=== PATIENT | female | born 1945 | race Caucasian/White ===

== ENCOUNTER 2016-08-31 10:55 | Inpatient (IN) | payer OTHER ==
[~2016-08-31] VITALS: Ht 157.5 cm; Wt 32.5 kg
[~2016-08-31 10:55] MED LIST: CYANOCOBALAM1000 MCG PO; ENDOCET 5-3251 EACH PO; FLEXERIL10 MG PO; Flagyl PO; Folvite PO; HYDROCODON-ACE1 EAC7 PO; Habitrol,Nicoderm CQ TD; IBUPROFEN600 MG PO; Lovenox SC; Marinol PO; Milk Of Magnesia,MOM PO; PAROXETINE HCL; Senokot S,Pericolace PO; TYLENOL REGULA325 MG PO; TYLENOL WITH C1 EACH PO; Theragran PO; Thiamine,Vitamin B1 PO; VENTOLIN HFA18 GM IH; oxyCODONE PO
[2016-08-31 12:11] LABS: HEMATOCRIT 58.1 % (36.0-46.0); MCH 32.5 PG (29.0-34.0); MCHC 35.5 G/DL (30.0-36.0); MCV 91.8 FL (83-99); MEAN PLAT.VOLUME 10.9 uM^3 (9.5-12.4); PLATELET COUNT 264 K/uL (156-360); RBC DIS.WIDTH-CV 12.4 % (11.8-14.6); RBC DIS.WIDTH-SD 41.4 % (39-53); RED BLOOD COUNT 6.33 M/uL (3.80-5.20); WHITE BLOOD COUNT 9.7 K/uL (4.1-10.2)
[2016-08-31 12:21] LABS: CHLORIDE 93 mEq/L (99-109); POTASSIUM 3.5 mEq/L (3.7-5.4); SODIUM 135 mEq/L (136-147)
[2016-08-31 12:22] LABS: GLUCOSE 121 mg/dL (70-99)
[2016-08-31 12:24] LABS: ANION GAP 14 MEQ/L (2-14)
[2016-08-31 12:26] LABS: GFR ESTIMATE (CALCULATED) > 59 mL/min/
[2016-08-31 12:27] LABS: UREA NITROGEN (BUN) 24 mg/dL (9-23)
[2016-08-31 12:41] LABS: TOTAL BILIRUBIN 1.2 mg/dL (0.0-1.0)
[2016-08-31 12:42] LABS: ALKALINE PHOSPHATASE 74 IU/L (3-129)
[2016-08-31 12:45] LABS: DIRECT BILIRUBIN 0.3 mg/dL (0.0-0.3)
[2016-08-31 14:43] LABS: TROP-I INTERPRETATION NEGATIVE; TROPONIN-I 0.04 ng/mL (0.0-0.30)
[2016-08-31] MEDS ORDERED: LO-DOSE ASPIRIN81 M1 PO (16:56)
[2016-08-31] MEDS ORDERED: CALCIUM 600 +1 EAC4 PO (16:56)
[2016-08-31] MEDS ORDERED: VENLAFAXINE HC150 MG PO (16:56)
[2016-08-31] MEDS ORDERED: ELAVIL10 MG PO (16:56)
[2016-08-31 20:54] VITALS: BP 86/55
[2016-09-01] VITALS: BP 101/60
[2016-09-01 04:00] VITALS: BP 95/74
[2016-09-01 07:27] LABS: ANION GAP 7 MEQ/L (2-14); CHLORIDE 104 MEQ/L (99-109); GFR ESTIMATE (CALCULATED) > 59 mL/min/; POTASSIUM 3.5 MEQ/L (3.7-5.4); SAMPLE HEMOLYSIS CHECK 1; SAMPLE ICTERIC CHECK 0; SAMPLE LIPEMIA CHECK 0; SODIUM 137 MEQ/L (136-147); UREA NITROGEN (BUN) 14 mg/dL (9-23)
[2016-09-01 07:28] LABS: GLUCOSE 67 mg/dL (70-99)
[2016-09-01 07:33] VITALS: BP 110/63
[2016-09-01 07:56] LABS: HEMATOCRIT 45.7 % (36.0-46.0); MCH 32.6 PG (29.0-34.0); MCHC 33.5 G/DL (30.0-36.0); RBC DIS.WIDTH-CV 12.6 % (11.8-14.6); RBC DIS.WIDTH-SD 44.8 % (39-53)
[2016-09-01 08:04] LABS: MCV 97.2 FL (83-99); WHITE BLOOD COUNT 6.2 K/uL (4.1-10.2)
[2016-09-01 09:11] LABS: MEAN PLAT.VOLUME 11.9 uM^3 (9.5-12.4)
[2016-09-01 10:28] LABS: PLATELET COUNT 176 K/uL (156-360)
[2016-09-01 12:17] VITALS: BP 102/64
[2016-09-01 12:21] LABS: ADD MIUA? NO; BILIRUBIN NEGATIVE; BLOOD NEGATIVE; COLOR YELLOW ((YELLOW)); GLUCOSE (STRIP) NEGATIVE; KETONES NEGATIVE; LEUKOCYTES NEGATIVE; NITRITE NEGATIVE; PROTEIN (STRIP) NEGATIVE; SPECIFIC GRAVITY 1.026 (1.000-1.030); UROBILINOGEN 0.2 MG/DL (0.2-1.0)
[2016-09-01 12:23] LABS: UCUL ADDED? NO
[2016-09-01 15:37] VITALS: BP 114/67
[2016-09-01 20:00] VITALS: BP 105/58
[2016-09-02] VITALS: BP 111/57
[2016-09-02 04:00] VITALS: BP 115/60
[2016-09-02 08:13] VITALS: BP 111/60
[2016-09-02 08:38] LABS: HEMATOCRIT 50.5 % (36.0-46.0); MCH 33.1 PG (29.0-34.0); MCHC 34.3 G/DL (30.0-36.0); MCV 96.7 FL (83-99); MEAN PLAT.VOLUME 11.1 uM^3 (9.5-12.4); PLATELET COUNT 167 K/uL (156-360); RBC DIS.WIDTH-CV 12.5 % (11.8-14.6); RBC DIS.WIDTH-SD 43.8 % (39-53); RED BLOOD COUNT 5.22 M/uL (3.80-5.20); WHITE BLOOD COUNT 6.9 K/uL (4.1-10.2)
[2016-09-02 09:00] LABS: ANION GAP 6 MEQ/L (2-14); CHLORIDE 96 MEQ/L (99-109); GFR ESTIMATE (CALCULATED) > 59 mL/min/; POTASSIUM 3.1 MEQ/L (3.7-5.4); SAMPLE HEMOLYSIS CHECK 0; SAMPLE ICTERIC CHECK 0; SAMPLE LIPEMIA CHECK 0; SODIUM 138 MEQ/L (136-147); UREA NITROGEN (BUN) 6 mg/dL (9-23)
[2016-09-02 09:07] LABS: GLUCOSE 90 mg/dL (70-99)
[2016-09-02 12:10] VITALS: BP 102/61
[2016-09-02 16:00] VITALS: BP 108/60
[2016-09-02 19:41] VITALS: BP 109/64
[2016-09-03 01:29] LABS: HEMATOCRIT 49.7 % (36.0-46.0); MCV 94.1 FL (83-99); MEAN PLAT.VOLUME 11.1 uM^3 (9.5-12.4); PLATELET COUNT 187 K/uL (156-360); RBC DIS.WIDTH-CV 12.1 % (11.8-14.6); RBC DIS.WIDTH-SD 41.1 % (39-53); RED BLOOD COUNT 5.28 M/uL (3.80-5.20); WHITE BLOOD COUNT 6.7 K/uL (4.1-10.2)
[2016-09-03 01:42] LABS: CHLORIDE 97 mEq/L (99-109); INTER. NORMALIZED RATIO 1.1; POTASSIUM 2.8 mEq/L (3.7-5.4); PROTHROMBIN TIME 10.9 (9.2-11.2); PTT 54.1 (25-32); SODIUM 138 mEq/L (136-147)
[2016-09-03 01:44] LABS: GLUCOSE 82 mg/dL (70-99)
[2016-09-03 01:45] LABS: ANION GAP 8 MEQ/L (2-14)
[2016-09-03 01:47] LABS: ALKALINE PHOSPHATASE 65 IU/L (3-129)
[2016-09-03 01:48] LABS: GFR ESTIMATE (CALCULATED) > 59 mL/min/
[2016-09-03 01:49] LABS: UREA NITROGEN (BUN) 5 mg/dL (9-23)
[2016-09-03 01:53] LABS: TOTAL BILIRUBIN 0.4 mg/dL (0.0-1.0)
[2016-09-03 04:01] VITALS: BP 115/85
[2016-09-03 04:04] VITALS: BP 115/66
[2016-09-03 07:36] VITALS: BP 107/67
[2016-09-03 11:21] VITALS: BP 98/63
[2016-09-03 15:17] VITALS: BP 119/68
[2016-09-03 20:05] VITALS: BP 128/80
[2016-09-04] VITALS: BP 123/61
[2016-09-04 04:03] VITALS: BP 120/69
[2016-09-04 08:01] VITALS: BP 104/65
[2016-09-04 08:18] LABS: ANION GAP 6 MEQ/L (2-14); CHLORIDE 96 MEQ/L (99-109); MAGNESIUM 1.2 mg/dl (1.3-2.7); SAMPLE HEMOLYSIS CHECK 0; SAMPLE ICTERIC CHECK 0; SAMPLE LIPEMIA CHECK 0; SODIUM 138 MEQ/L (136-147)
[2016-09-04 08:24] LABS: GFR ESTIMATE (CALCULATED) > 59 mL/min/; GLUCOSE 88 mg/dL (70-99); POTASSIUM 3.5 MEQ/L (3.7-5.4); UREA NITROGEN (BUN) 4 mg/dL (9-23)
[2016-09-04 08:26] LABS: EOSINOPHIL (%) 0.8 % (0-5); EOSINOPHIL COUNT 0.1 K/uL (0-0.3); HEMATOCRIT 49.5 % (36.0-46.0); IMMATURE GRANULOCYTE (%) 0.1 % (0.0-0.7); LYMPHOCYTE COUNT 1.1 K/uL (1.0-2.8); MCH 33.1 PG (29.0-34.0); MCHC 33.7 G/DL (30.0-36.0); MONOCYTE (%) 7.7 % (3-12); MONOCYTE COUNT 0.6 K/uL (0-0.8); NEUTROPHIL (%) 76.2 % (45-76); NEUTROPHIL COUNT 5.5 K/uL (1.8-6.4); RBC DIS.WIDTH-CV 12.7 % (11.8-14.6); RBC DIS.WIDTH-SD 45.7 % (39-53); RED BLOOD COUNT 5.04 M/uL (3.80-5.20); WHITE BLOOD COUNT 7.2 K/uL (4.1-10.2)
[2016-09-04 08:38] LABS: MCV 98.2 FL (83-99)
[2016-09-04 08:51] LABS: MEAN PLAT.VOLUME 11.6 uM^3 (9.5-12.4); PLATELET COUNT 153 K/uL (156-360)
[2016-09-04 12:00] VITALS: BP 95/56
[2016-09-04 14:30] VITALS: BP 80/52
[2016-09-04 20:00] VITALS: BP 92/52
[2016-09-05] VITALS: BP 122/77
[2016-09-05 04:28] VITALS: BP 101/55
[2016-09-05 07:29] LABS: HEMATOCRIT 48.4 % (36.0-46.0); MCH 32.3 PG (29.0-34.0); MCHC 32.6 G/DL (30.0-36.0); PLATELET COUNT 161 K/uL (156-360); RBC DIS.WIDTH-CV 12.9 % (11.8-14.6); RBC DIS.WIDTH-SD 46.6 % (39-53); RED BLOOD COUNT 4.89 M/uL (3.80-5.20); WHITE BLOOD COUNT 5.7 K/uL (4.1-10.2)
[2016-09-05 07:30] LABS: EOSINOPHIL (%) 1.1 % (0-5); EOSINOPHIL COUNT 0.1 K/uL (0-0.3); IMMATURE GRANULOCYTE (%) 0.2 % (0.0-0.7); LYMPHOCYTE COUNT 1.1 K/uL (1.0-2.8); MEAN PLAT.VOLUME 11.2 uM^3 (9.5-12.4); MONOCYTE (%) 8.4 % (3-12); MONOCYTE COUNT 0.5 K/uL (0-0.8); NEUTROPHIL COUNT 4.1 K/uL (1.8-6.4)
[2016-09-05 07:54] LABS: ANION GAP 2 MEQ/L (2-14); CHLORIDE 98 MEQ/L (99-109); GFR ESTIMATE (CALCULATED) > 59 mL/min/; GLUCOSE 66 mg/dL (70-99); MAGNESIUM 1.5 mg/dl (1.3-2.7); POTASSIUM 4.8 MEQ/L (3.7-5.4); SAMPLE HEMOLYSIS CHECK 0; SAMPLE ICTERIC CHECK 0; SAMPLE LIPEMIA CHECK 0; SODIUM 136 MEQ/L (136-147); UREA NITROGEN (BUN) 4 mg/dL (9-23)
[2016-09-05 08:06] VITALS: BP 126/82
[2016-09-05 11:08] VITALS: BP 108/60
[2016-09-05 15:16] VITALS: BP 96/52
[2016-09-05 19:49] VITALS: BP 107/57
[2016-09-06 00:28] VITALS: BP 142/79
[2016-09-06 03:54] VITALS: BP 110/74
[2016-09-06 07:46] VITALS: BP 110/62
[2016-09-06 12:01] VITALS: BP 107/62
[2016-09-06 16:24] VITALS: BP 109/60
[2016-09-06 19:53] VITALS: BP 99/60
[2016-09-07 00:11] VITALS: BP 126/71
[2016-09-07 03:57] VITALS: BP 138/69
[2016-09-07 08:07] VITALS: BP 107/62
[2016-09-07 12:04] VITALS: BP 96/55
[2016-09-07] MEDS ORDERED: HEPARIN SO5000 UNITS SC (13:46)
[2016-09-07] MEDS ORDERED: NICOTINE PATCH1 EAC2 TD (13:46)
[2016-09-07] MEDS ORDERED: FOLIC ACID1 MG PO (13:47)
[2016-09-07] MEDS ORDERED: THERAGRAN1 TABLET PO (13:47)
[2016-09-07] MEDS ORDERED: Thiamine,Vitamin B1 PO (13:47)
[2016-09-07] MEDS ORDERED: DUONEB 2.5-0.5 M3 ML AEROSOL (13:48)
== END 2016-09-07 16:03 | DRG 640 ==
LOC: EME 10:55 → 5SOUTH 18:37 → EDOF 18:37 → 5SOUTH 20:31
PROVIDERS: Emergency Medicine; Hospitalist; Internal Medicine; Physician Assistant
DX: E86.0 Dehydration (principal); R57.1 Hypovolemic shock; R64 Cachexia; F19.921 Other psychoactive substance use, unspecified with intoxication with delirium; S32.10XA Unspecified fracture of sacrum, initial encounter for closed fracture; J44.9 Chronic obstructive pulmonary disease, unspecified; E87.1 Hypo-osmolality and hyponatremia; Z68.1 Body mass index [BMI] 19.9 or less, adult; R62.7 Adult failure to thrive; F17.210 Nicotine dependence, cigarettes, uncomplicated; W01.10XA Fall on same level from slipping, tripping and stumbling with subsequent striking against unspecified object, initial encounter; F10.20 Alcohol dependence, uncomplicated; Y99.8 Other external cause status; E87.6 Hypokalemia; F32.9 Major depressive disorder, single episode, unspecified
CPT/HCPCS: 70450; 71020; 71250; 71260; 72125; 72128; 72131; 74176; 74177; 80048; 80053; 80076; 81003; 82607; 83735; 84100; 84443; 84484; 85025; 85027; 85610; 85730; 92610 GN; 93005; 94640; 94640 76; 94799; 97530 GO; 99202; 99281; 99285; J1644; J3411; J3475; J3480; J7030

== ENCOUNTER 2017-01-10 13:47 | Inpatient (IN) | payer OTHER ==
[~2017-01-10] VITALS: Ht 154.9 cm; Wt 37.9 kg
[~2017-01-10 13:47] MED LIST changes: +CALCIUM 600 +1 EAC4 PO; +DUONEB 2.5-0.5 M3 ML AEROSOL; +ELAVIL10 MG PO; +FOLIC ACID1 MG PO; +HEPARIN SO5000 UNITS SC; +LO-DOSE ASPIRIN81 M1 PO; +NICOTINE PATCH1 EAC2 TD; +THERAGRAN1 TABLET PO; +VENLAFAXINE HC150 MG PO
[2017-01-10 14:19] LABS: HEMATOCRIT 46.5 % (36.0-46.0); MCHC 33.3 G/DL (30.0-36.0); MCV 98.9 FL (83-99); MEAN PLAT.VOLUME 9.5 uM^3 (9.5-12.4); PLATELET COUNT 225 K/uL (156-360); RBC DIS.WIDTH-CV 13.2 % (11.8-14.6); RBC DIS.WIDTH-SD 48.2 % (39-53); WHITE BLOOD COUNT 11.2 K/uL (4.1-10.2)
[2017-01-10 14:27] LABS: CHLORIDE 94 mEq/L (99-109); POTASSIUM 3.7 mEq/L (3.7-5.4); SODIUM 134 mEq/L (136-147)
[2017-01-10 14:29] LABS: GLUCOSE 158 mg/dL (70-99)
[2017-01-10 14:30] LABS: ANION GAP 13 MEQ/L (2-14)
[2017-01-10 14:32] LABS: D-DIMER ELISA 1.03 mg/L FEU (< 0.57); PROTHROMBIN TIME 10.6 (9.2-11.2); PTT 35.5 (25-32)
[2017-01-10 14:33] LABS: GFR ESTIMATE (CALCULATED) > 59 mL/min/
[2017-01-10 14:34] LABS: UREA NITROGEN (BUN) 11 mg/dL (9-23)
[2017-01-10 14:40] LABS: TROP-I INTERPRETATION NEGATIVE; TROPONIN-I < 0.01 ng/mL (0.0-0.30)
[2017-01-10 18:09] LABS: TROP-I INTERPRETATION NEGATIVE; TROPONIN-I 0.02 ng/mL (0.0-0.30)
[2017-01-10 22:40] VITALS: BP 90/52
[2017-01-11] VITALS (15 sets, daily range): BP systolic 72–167; BP diastolic 41–99
[2017-01-11 07:37] LABS: HEMATOCRIT 44.4 % (36.0-46.0); MCHC 32.7 G/DL (30.0-36.0); MCV 104.2 FL (83-99); PLATELET COUNT 223 K/uL (156-360); RBC DIS.WIDTH-CV 13.3 % (11.8-14.6); RBC DIS.WIDTH-SD 51.1 % (39-53); RED BLOOD COUNT 4.26 M/uL (3.80-5.20); WHITE BLOOD COUNT 8.3 K/uL (4.1-10.2)
[2017-01-11 08:00] LABS: ALKALINE PHOSPHATASE 97 IU/L (3-129); ANION GAP 6 MEQ/L (2-14); CHLORIDE 97 MEQ/L (99-109); GFR ESTIMATE (CALCULATED) > 59 mL/min/; GLUCOSE 197 mg/dL (70-99); POTASSIUM 3.7 MEQ/L (3.7-5.4); SAMPLE HEMOLYSIS CHECK 0; SAMPLE ICTERIC CHECK 0; SAMPLE LIPEMIA CHECK 0; SODIUM 137 MEQ/L (136-147); TOTAL BILIRUBIN 0.3 MG/DL (0.0-1.0); UREA NITROGEN (BUN) 13 mg/dL (9-23)
[2017-01-11 08:37] LABS: BASE EXCESS -0.7 mEq/L (-3 to +3); BICARBONATE 33.4 mEq/L (22-26); METHEMOGLOBIN 1.5 % (0-1.5); PO2 112 mm Hg (80-100)
[2017-01-11 08:40] LABS: COMMENTS - BLOOD GASES +C; DEVICE NC; O2 FLOW 3 L/MIN; PCO2 118 mm Hg (35-45); SITE RB; TOTAL RESP RATE 20 resp/min
[2017-01-11 08:41] LABS: pH 7.06 (7.35-7.45)
[2017-01-11 09:28] LABS: MAGNESIUM 2.6 mg/dl (1.3-2.7)
[2017-01-11 11:51] LABS: METH RESISTANT S AUREUS PCR NEGATIVE (NEGATIVE)
[2017-01-11 11:52] LABS: PROBE CHECK PASS; SPECIMEN PROCESSING CONTROL PASS
[2017-01-11 13:17] LABS: BASE EXCESS 2.4 mEq/L (-3 to +3); BICARBONATE 28.4 mEq/L (22-26); CARBOXY HGB 2.5 % (0-5); METHEMOGLOBIN 1.6 % (0-1.5)
[2017-01-11 13:18] LABS: COMMENTS - BLOOD GASES C+; DEVICE 980 VENTILATOR; FI02 50 %; MECHANICAL RATE 22 resp/min; MODE AC; PCO2 48 mm Hg (35-45); PEEP 5 CM/H20; PO2 203 mm Hg (80-100); SITE RB; TIDAL VOLUME 375 ML; TOTAL RESP RATE 22 resp/min; pH 7.38 (7.35-7.45)
[2017-01-12] VITALS (21 sets, daily range): BP systolic 76–119; BP diastolic 38–73
[2017-01-12 06:02] LABS: BASE EXCESS 2.1 mEq/L (-3 to +3); BICARBONATE 30.3 mEq/L (22-26); CARBOXY HGB 2.4 % (0-5); COMMENTS - BLOOD GASES A+; DEVICE 980 VENT; FI02 30 %; METHEMOGLOBIN 1.5 % (0-1.5); MODE SPONT; PCO2 63 mm Hg (35-45); PO2 57 mm Hg (80-100); SITE RB; TOTAL RESP RATE 24 resp/min; pH 7.29 (7.35-7.45)
[2017-01-12 06:03] LABS: PEEP 5 CM/H20; PRES. SUPPORT 12 CM/H2O
[2017-01-12 07:54] LABS: ANION GAP 10 MEQ/L (2-14); CHLORIDE 99 MEQ/L (99-109); EOSINOPHIL (%) 0 % (0-5); GFR ESTIMATE (CALCULATED) > 59 mL/min/; GLUCOSE 230 mg/dL (70-99); HEMATOCRIT 38.6 % (36.0-46.0); IMMATURE GRANULOCYTE COUNT 0.1 K/uL; LYMPHOCYTE COUNT 0.3 K/uL (1.0-2.8); MAGNESIUM 2.6 mg/dl (1.3-2.7); MCH 33.2 PG (29.0-34.0); MCHC 32.4 G/DL (30.0-36.0); MCV 102.4 FL (83-99); MEAN PLAT.VOLUME 10.3 uM^3 (9.5-12.4); MONOCYTE (%) 6.8 % (3-12); MONOCYTE COUNT 0.7 K/uL (0-0.8); NEUTROPHIL (%) 89.4 % (45-76); PLATELET COUNT 198 K/uL (156-360); POTASSIUM 3.2 MEQ/L (3.7-5.4); RBC DIS.WIDTH-CV 13.3 % (11.8-14.6); RBC DIS.WIDTH-SD 50.7 % (39-53); RED BLOOD COUNT 3.77 M/uL (3.80-5.20); SAMPLE HEMOLYSIS CHECK 0; SAMPLE ICTERIC CHECK 0; SAMPLE LIPEMIA CHECK 0; SODIUM 136 MEQ/L (136-147); UREA NITROGEN (BUN) 12 mg/dL (9-23); WHITE BLOOD COUNT 10.1 K/uL (4.1-10.2)
[2017-01-12 08:09] LABS: BASE EXCESS 4.1 mEq/L (-3 to +3); BICARBONATE 31.3 mEq/L (22-26); CARBOXY HGB 2.3 % (0-5); DEVICE VENT; FI02 30 %; METHEMOGLOBIN 1.7 % (0-1.5); MODE SPONT; PCO2 58 mm Hg (35-45); PO2 59 mm Hg (80-100); SITE RB; TOTAL RESP RATE 7 resp/min; pH 7.34 (7.35-7.45)
[2017-01-12 08:11] LABS: PEEP 5 CM/H20; PRES. SUPPORT 12 CM/H2O
[2017-01-12 08:36] LABS: INTERNAL CONTROL VALID? YES
[2017-01-12 17:33] LABS: POINT-OF-CARE METER ID UU13113731
[2017-01-12 20:54] LABS: POTASSIUM 3.4 mEq/L (3.7-5.4); SODIUM 140 mEq/L (136-147)
[2017-01-12 20:55] LABS: CHLORIDE 104 mEq/L (99-109)
[2017-01-12 20:56] LABS: GLUCOSE 173 mg/dL (70-99)
[2017-01-12 20:58] LABS: ANION GAP 9 MEQ/L (2-14)
[2017-01-12 21:00] LABS: GFR ESTIMATE (CALCULATED) > 59 mL/min/
[2017-01-12 21:01] LABS: UREA NITROGEN (BUN) 12 mg/dL (9-23)
[2017-01-12 21:48] LABS: TROP-I INTERPRETATION NEGATIVE; TROPONIN-I 0.01 ng/mL (0.0-0.30)
[2017-01-12 22:13] LABS: CREATINE KINASE 26 IU/L (1-294)
[2017-01-13] VITALS (23 sets, daily range): BP systolic 84–138; BP diastolic 46–67
[2017-01-13 00:12] LABS: POINT-OF-CARE METER ID UU14162636
[2017-01-13 05:50] LABS: CHLORIDE 107 mEq/L (99-109); SODIUM 140 mEq/L (136-147)
[2017-01-13 05:51] LABS: MAGNESIUM 2.3 mg/dL (1.3-2.7); POTASSIUM 4.3 mEq/L (3.7-5.4)
[2017-01-13 05:52] LABS: GLUCOSE 167 mg/dL (70-99)
[2017-01-13 05:53] LABS: ANION GAP 7 MEQ/L (2-14)
[2017-01-13 05:56] LABS: GFR ESTIMATE (CALCULATED) > 59 mL/min/
[2017-01-13 05:57] LABS: UREA NITROGEN (BUN) 12 mg/dL (9-23)
[2017-01-13 06:03] LABS: HEMATOCRIT 34.2 % (36.0-46.0); MCH 33.5 PG (29.0-34.0); MCHC 32.5 G/DL (30.0-36.0); MCV 103.3 FL (83-99); MEAN PLAT.VOLUME 10.1 uM^3 (9.5-12.4); PLATELET COUNT 199 K/uL (156-360); RBC DIS.WIDTH-CV 13.9 % (11.8-14.6); RBC DIS.WIDTH-SD 53.5 % (39-53); RED BLOOD COUNT 3.31 M/uL (3.80-5.20); WHITE BLOOD COUNT 9.9 K/uL (4.1-10.2)
[2017-01-13 06:59] LABS: EOSINOPHIL (%) 0 % (0-5); IMMATURE GRANULOCYTE (%) 1.1 % (0.0-0.7); IMMATURE GRANULOCYTE COUNT 0.1 K/uL; INSTRUMENT ABS NEUTROPHIL CT 9.1 K/uL; LYMPHOCYTE COUNT 0.2 K/uL (1.0-2.8); MONOCYTE (%) 4.7 % (3-12); MONOCYTE COUNT 0.5 K/uL (0-0.8); NEUTROPHIL COUNT 9.1 K/uL (1.8-6.4)
[2017-01-13 07:31] LABS: ABS NEUTROPHIL COUNT 9.5; BAND NEUTROPHILS 6.2 % (0-8.0); BASOPHILS 0.9 %; EOSINOPHIL ABS CT 0; LYMPHOCYTES 1.7 % (15.0-45.0); SEG.NEUTROPHILS 89.4 % (46.0-76.0)
[2017-01-13 12:25] LABS: POINT-OF-CARE USER ID 612031313
[2017-01-13 18:17] LABS: POINT-OF-CARE USER ID 612031313
[2017-01-14] VITALS (24 sets, daily range): BP systolic 95–145; BP diastolic 54–83
[2017-01-14 01:26] LABS: POINT-OF-CARE METER ID UU14162636
[2017-01-14 06:25] LABS: EOSINOPHIL (%) 0 % (0-5); HEMATOCRIT 39.8 % (36.0-46.0); IMMATURE GRANULOCYTE (%) 1.2 % (0.0-0.7); IMMATURE GRANULOCYTE COUNT 0.1 K/uL; INSTRUMENT ABS NEUTROPHIL CT 7.3 K/uL; LYMPHOCYTE COUNT 0.2 K/uL (1.0-2.8); MCH 32.7 PG (29.0-34.0); MCHC 32.7 G/DL (30.0-36.0); MEAN PLAT.VOLUME 9.6 uM^3 (9.5-12.4); MONOCYTE (%) 7.2 % (3-12); MONOCYTE COUNT 0.6 K/uL (0-0.8); NEUTROPHIL (%) 88.5 % (45-76); NEUTROPHIL COUNT 7.3 K/uL (1.8-6.4); PLATELET COUNT 221 K/uL (156-360); RBC DIS.WIDTH-CV 13.7 % (11.8-14.6); RBC DIS.WIDTH-SD 50.5 % (39-53); WHITE BLOOD COUNT 8.3 K/uL (4.1-10.2)
[2017-01-14 06:26] LABS: RED BLOOD COUNT 3.98 M/uL (3.80-5.20)
[2017-01-14 06:42] LABS: POINT-OF-CARE METER ID UU13113803
[2017-01-14 06:50] LABS: ANION GAP 7 MEQ/L (2-14); CHLORIDE 96 MEQ/L (99-109); GFR ESTIMATE (CALCULATED) > 59 mL/min/; GLUCOSE 141 mg/dL (70-99); POTASSIUM 3.5 MEQ/L (3.7-5.4); SAMPLE HEMOLYSIS CHECK 0; SAMPLE ICTERIC CHECK 0; SAMPLE LIPEMIA CHECK 0; SODIUM 141 MEQ/L (136-147); UREA NITROGEN (BUN) 12 mg/dL (9-23)
[2017-01-14 12:05] LABS: POINT-OF-CARE METER ID UU14162636
[2017-01-14 16:21] LABS: BASE EXCESS 12.7 mEq/L (-3 to +3); CARBOXY HGB 2.2 % (0-5); METHEMOGLOBIN 1.7 % (0-1.5); PO2 60 mm Hg (80-100); pH 7.41 (7.35-7.45)
[2017-01-14 16:24] LABS: BICARBONATE 40.6 mEq/L (22-26); COMMENTS - BLOOD GASES C+; DEVICE VENT; FI02 30 %; MODE TC; PCO2 64 mm Hg (35-45); PEEP 5 CM/H20; SITE RB; TOTAL RESP RATE 27 resp/min
[2017-01-15] VITALS (22 sets, daily range): BP systolic 110–150; BP diastolic 60–95
[2017-01-15 02:13] LABS: POINT-OF-CARE METER ID UU13113803
[2017-01-15 06:28] LABS: EOSINOPHIL (%) 0 % (0-5); HEMATOCRIT 40.2 % (36.0-46.0); IMMATURE GRANULOCYTE (%) 1.4 % (0.0-0.7); IMMATURE GRANULOCYTE COUNT 0.1 K/uL; INSTRUMENT ABS NEUTROPHIL CT 6.5 K/uL; LYMPHOCYTE COUNT 0.3 K/uL (1.0-2.8); MCH 33.3 PG (29.0-34.0); MCHC 32.8 G/DL (30.0-36.0); MCV 101.5 FL (83-99); MEAN PLAT.VOLUME 9.7 uM^3 (9.5-12.4); MONOCYTE (%) 5.3 % (3-12); MONOCYTE COUNT 0.4 K/uL (0-0.8); NEUTROPHIL (%) 89.2 % (45-76); NEUTROPHIL COUNT 6.5 K/uL (1.8-6.4); PLATELET COUNT 239 K/uL (156-360); RBC DIS.WIDTH-CV 14.1 % (11.8-14.6); RBC DIS.WIDTH-SD 52.8 % (39-53); RED BLOOD COUNT 3.96 M/uL (3.80-5.20); WHITE BLOOD COUNT 7.3 K/uL (4.1-10.2)
[2017-01-15 07:02] LABS: ANION GAP 6 MEQ/L (2-14); CHLORIDE 95 MEQ/L (99-109); GFR ESTIMATE (CALCULATED) > 59 mL/min/; GLUCOSE 154 mg/dL (70-99); POTASSIUM 4.1 MEQ/L (3.7-5.4); SAMPLE HEMOLYSIS CHECK 0; SAMPLE ICTERIC CHECK 0; SAMPLE LIPEMIA CHECK 0; SODIUM 141 MEQ/L (136-147); UREA NITROGEN (BUN) 13 mg/dL (9-23)
[2017-01-15 07:06] LABS: POINT-OF-CARE METER ID UU13113803
[2017-01-15 13:09] LABS: POINT-OF-CARE METER ID UU13113803
[2017-01-15 17:50] LABS: POINT-OF-CARE METER ID UU14174217
[2017-01-15 21:54] LABS: POINT-OF-CARE METER ID UU14174225
[2017-01-16 04:33] VITALS: BP 134/70
[2017-01-16 07:00] VITALS: BP 152/82
[2017-01-16 08:28] LABS: EOSINOPHIL (%) 0 % (0-5); HEMATOCRIT 43.3 % (36.0-46.0); IMMATURE GRANULOCYTE (%) 1.6 % (0.0-0.7); IMMATURE GRANULOCYTE COUNT 0.1 K/uL; LYMPHOCYTE COUNT 0.4 K/uL (1.0-2.8); MCH 32.9 PG (29.0-34.0); MCHC 33.3 G/DL (30.0-36.0); MCV 98.9 FL (83-99); MEAN PLAT.VOLUME 9.6 uM^3 (9.5-12.4); MONOCYTE (%) 5.9 % (3-12); MONOCYTE COUNT 0.4 K/uL (0-0.8); NEUTROPHIL (%) 86.3 % (45-76); PLATELET COUNT 271 K/uL (156-360); RBC DIS.WIDTH-CV 13.4 % (11.8-14.6); RBC DIS.WIDTH-SD 48.6 % (39-53); RED BLOOD COUNT 4.38 M/uL (3.80-5.20); WHITE BLOOD COUNT 6.9 K/uL (4.1-10.2)
[2017-01-16 09:04] LABS: ANION GAP 6 MEQ/L (2-14); CHLORIDE 89 MEQ/L (99-109); GFR ESTIMATE (CALCULATED) > 59 mL/min/; GLUCOSE 123 mg/dL (70-99); MAGNESIUM 1.9 mg/dl (1.3-2.7); POTASSIUM 3.7 MEQ/L (3.7-5.4); SAMPLE HEMOLYSIS CHECK 0; SAMPLE ICTERIC CHECK 0; SAMPLE LIPEMIA CHECK 0; SODIUM 135 MEQ/L (136-147); UREA NITROGEN (BUN) 12 mg/dL (9-23)
[2017-01-16 12:03] LABS: C DIFF TOXIN NEGATIVE (NEGATIVE)
[2017-01-16 12:05] VITALS: BP 124/62
[2017-01-16 12:21] VITALS: BP 148/80
[2017-01-16 12:31] LABS: PROBE CHECK PASS; SPECIMEN PROCESSING CONTROL PASS
[2017-01-16 15:00] VITALS: BP 149/93
[2017-01-16 23:46] VITALS: BP 122/64
[2017-01-17 06:41] LABS: EOSINOPHIL (%) 0 % (0-5); HEMATOCRIT 42.1 % (36.0-46.0); IMMATURE GRANULOCYTE (%) 1.3 % (0.0-0.7); IMMATURE GRANULOCYTE COUNT 0.1 K/uL; INSTRUMENT ABS NEUTROPHIL CT 4.9 K/uL; LYMPHOCYTE COUNT 1.4 K/uL (1.0-2.8); MCH 33.1 PG (29.0-34.0); MCHC 32.8 G/DL (30.0-36.0); MEAN PLAT.VOLUME 9.5 uM^3 (9.5-12.4); MONOCYTE COUNT 0.6 K/uL (0-0.8); NEUTROPHIL (%) 70.9 % (45-76); NEUTROPHIL COUNT 4.9 K/uL (1.8-6.4); PLATELET COUNT 260 K/uL (156-360); RBC DIS.WIDTH-CV 13.3 % (11.8-14.6); RBC DIS.WIDTH-SD 49.4 % (39-53); RED BLOOD COUNT 4.17 M/uL (3.80-5.20); WHITE BLOOD COUNT 6.9 K/uL (4.1-10.2)
[2017-01-17 07:16] LABS: ANION GAP ND MEQ/L (2-14); CHLORIDE 91 MEQ/L (99-109); GFR ESTIMATE (CALCULATED) > 59 mL/min/; MAGNESIUM 1.9 mg/dl (1.3-2.7); POTASSIUM 3.5 MEQ/L (3.7-5.4); SAMPLE HEMOLYSIS CHECK 0; SAMPLE ICTERIC CHECK 0; SAMPLE LIPEMIA CHECK 0; SODIUM 141 MEQ/L (136-147); UREA NITROGEN (BUN) 14 mg/dL (9-23)
[2017-01-17 07:20] LABS: CARBON DIOXIDE (BICARBONATE) > 40.0 MEQ/L (20-31); GLUCOSE 66 mg/dL (70-99)
[2017-01-17 07:51] VITALS: BP 109/65
[2017-01-17 11:31] LABS: BASE EXCESS 19.4 mEq/L (-3 to +3); BICARBONATE 46.9 mEq/L (22-26); CARBOXY HGB 2.2 % (0-5); METHEMOGLOBIN 1.6 % (0-1.5); PCO2 63 mm Hg (35-45); PO2 53 mm Hg (80-100); pH 7.48 (7.35-7.45)
[2017-01-17 11:32] LABS: COMMENTS - BLOOD GASES C+; DEVICE NC; O2 FLOW 2 L/MIN; SITE RB
[2017-01-17 16:17] VITALS: BP 99/53
[2017-01-17 23:24] VITALS: BP 128/72
[2017-01-18 07:50] LABS: EOSINOPHIL (%) 0 % (0-5); HEMATOCRIT 42.4 % (36.0-46.0); IMMATURE GRANULOCYTE (%) 0.9 % (0.0-0.7); IMMATURE GRANULOCYTE COUNT 0.1 K/uL; INSTRUMENT ABS NEUTROPHIL CT 6.4 K/uL; LYMPHOCYTE COUNT 1.7 K/uL (1.0-2.8); MCHC 31.6 G/DL (30.0-36.0); MCV 101.2 FL (83-99); MEAN PLAT.VOLUME 9.4 uM^3 (9.5-12.4); MONOCYTE (%) 6.6 % (3-12); MONOCYTE COUNT 0.6 K/uL (0-0.8); NEUTROPHIL (%) 72.9 % (45-76); NEUTROPHIL COUNT 6.4 K/uL (1.8-6.4); PLATELET COUNT 285 K/uL (156-360); RBC DIS.WIDTH-CV 13.2 % (11.8-14.6); RBC DIS.WIDTH-SD 49.7 % (39-53); RED BLOOD COUNT 4.19 M/uL (3.80-5.20); WHITE BLOOD COUNT 8.7 K/uL (4.1-10.2)
[2017-01-18 08:18] LABS: ANION GAP ND MEQ/L (2-14); CHLORIDE 93 MEQ/L (99-109); GFR ESTIMATE (CALCULATED) > 59 mL/min/; GLUCOSE 61 mg/dL (70-99); MAGNESIUM 1.8 mg/dl (1.3-2.7); POTASSIUM 4.1 MEQ/L (3.7-5.4); SAMPLE HEMOLYSIS CHECK 0; SAMPLE ICTERIC CHECK 0; SAMPLE LIPEMIA CHECK 0; SODIUM 141 MEQ/L (136-147); UREA NITROGEN (BUN) 16 mg/dL (9-23)
[2017-01-18 08:18] LABS: POINT-OF-CARE METER ID UU14174225
[2017-01-18 08:19] LABS: CARBON DIOXIDE (BICARBONATE) > 40.0 MEQ/L (20-31)
[2017-01-18 08:28] VITALS: BP 123/73
[2017-01-18 11:51] LABS: BASE EXCESS 16.9 mEq/L (-3 to +3); BICARBONATE 44.5 mEq/L (22-26); CARBOXY HGB 2.4 % (0-5); METHEMOGLOBIN 1.7 % (0-1.5); PCO2 64 mm Hg (35-45); PO2 58 mm Hg (80-100); pH 7.45 (7.35-7.45)
[2017-01-18 11:52] LABS: DEVICE NC; O2 FLOW 2 L/MIN; SITE LB; TOTAL RESP RATE 10 resp/min
[2017-01-18 12:38] LABS: POINT-OF-CARE METER ID UU14174225
[2017-01-18 16:36] LABS: POINT-OF-CARE METER ID UU14174225
[2017-01-18 17:08] VITALS: BP 108/62
[2017-01-19] VITALS: BP 103/58
[2017-01-19 07:51] LABS: POINT-OF-CARE METER ID UU14174225
[2017-01-19 08:08] VITALS: BP 117/75
[2017-01-19 08:49] LABS: EOSINOPHIL (%) 0 % (0-5); HEMATOCRIT 42.9 % (36.0-46.0); IMMATURE GRANULOCYTE (%) 1.2 % (0.0-0.7); IMMATURE GRANULOCYTE COUNT 0.1 K/uL; INSTRUMENT ABS NEUTROPHIL CT 7.7 K/uL; LYMPHOCYTE COUNT 1.7 K/uL (1.0-2.8); MCH 32.2 PG (29.0-34.0); MCHC 32.2 G/DL (30.0-36.0); MCV 100.2 FL (83-99); MEAN PLAT.VOLUME 9.5 uM^3 (9.5-12.4); MONOCYTE COUNT 0.7 K/uL (0-0.8); NEUTROPHIL (%) 75.3 % (45-76); NEUTROPHIL COUNT 7.7 K/uL (1.8-6.4); PLATELET COUNT 312 K/uL (156-360); RBC DIS.WIDTH-CV 13.2 % (11.8-14.6); RBC DIS.WIDTH-SD 48.8 % (39-53); RED BLOOD COUNT 4.28 M/uL (3.80-5.20); WHITE BLOOD COUNT 10.2 K/uL (4.1-10.2)
[2017-01-19 09:11] LABS: ANION GAP ND MEQ/L (2-14); CHLORIDE 89 MEQ/L (99-109); GFR ESTIMATE (CALCULATED) > 59 mL/min/; GLUCOSE 65 mg/dL (70-99); MAGNESIUM 1.7 mg/dl (1.3-2.7); POTASSIUM 4.9 MEQ/L (3.7-5.4); SAMPLE HEMOLYSIS CHECK 0; SAMPLE ICTERIC CHECK 0; SAMPLE LIPEMIA CHECK 0; SODIUM 134 MEQ/L (136-147); UREA NITROGEN (BUN) 16 mg/dL (9-23)
[2017-01-19 09:15] LABS: CARBON DIOXIDE (BICARBONATE) > 40.0 MEQ/L (20-31)
[2017-01-19 12:24] LABS: POINT-OF-CARE METER ID UU14174225
[2017-01-19 16:23] VITALS: BP 120/76
[2017-01-19 17:41] LABS: POINT-OF-CARE USER ID STWAMT
[2017-01-20] VITALS: BP 104/61
[2017-01-20 07:16] LABS: EOSINOPHIL (%) 0 % (0-5); IMMATURE GRANULOCYTE (%) 0.5 % (0.0-0.7); INSTRUMENT ABS NEUTROPHIL CT 6.4 K/uL; LYMPHOCYTE COUNT 1.4 K/uL (1.0-2.8); MCH 32.9 PG (29.0-34.0); MCHC 33.3 G/DL (30.0-36.0); MCV 98.9 FL (83-99); MEAN PLAT.VOLUME 9.9 uM^3 (9.5-12.4); MONOCYTE COUNT 0.6 K/uL (0-0.8); NEUTROPHIL (%) 75.4 % (45-76); NEUTROPHIL COUNT 6.4 K/uL (1.8-6.4); PLATELET COUNT 309 K/uL (156-360); RBC DIS.WIDTH-CV 13.1 % (11.8-14.6); RED BLOOD COUNT 4.35 M/uL (3.80-5.20); WHITE BLOOD COUNT 8.5 K/uL (4.1-10.2)
[2017-01-20 07:35] VITALS: BP 144/66
[2017-01-20 07:40] LABS: ANION GAP 6 MEQ/L (2-14); CHLORIDE 88 MEQ/L (99-109); GFR ESTIMATE (CALCULATED) > 59 mL/min/; GLUCOSE 88 mg/dL (70-99); MAGNESIUM 1.8 mg/dl (1.3-2.7); POTASSIUM 5.1 MEQ/L (3.7-5.4); SAMPLE HEMOLYSIS CHECK 0; SAMPLE ICTERIC CHECK 0; SAMPLE LIPEMIA CHECK 0; SODIUM 132 MEQ/L (136-147); UREA NITROGEN (BUN) 18 mg/dL (9-23)
[2017-01-20 07:45] LABS: POINT-OF-CARE METER ID UU14188625
[2017-01-20 11:46] LABS: POINT-OF-CARE METER ID UU14188625
[2017-01-20 15:56] VITALS: BP 93/53
[2017-01-20 17:25] LABS: POINT-OF-CARE METER ID UU14188625; POINT-OF-CARE USER ID STWAMT
[2017-01-20 23:18] VITALS: BP 101/55
[2017-01-21 07:12] LABS: EOSINOPHIL (%) 0 % (0-5); HEMATOCRIT 41.8 % (36.0-46.0); IMMATURE GRANULOCYTE (%) 0.6 % (0.0-0.7); IMMATURE GRANULOCYTE COUNT 0.1 K/uL; LYMPHOCYTE COUNT 1.1 K/uL (1.0-2.8); MCH 32.5 PG (29.0-34.0); MCV 98.6 FL (83-99); MEAN PLAT.VOLUME 9.8 uM^3 (9.5-12.4); MONOCYTE (%) 7.8 % (3-12); MONOCYTE COUNT 0.7 K/uL (0-0.8); NEUTROPHIL (%) 79.2 % (45-76); PLATELET COUNT 342 K/uL (156-360); RBC DIS.WIDTH-CV 13.3 % (11.8-14.6); RBC DIS.WIDTH-SD 48.5 % (39-53); RED BLOOD COUNT 4.24 M/uL (3.80-5.20); WHITE BLOOD COUNT 8.8 K/uL (4.1-10.2)
[2017-01-21 07:33] VITALS: BP 107/64
[2017-01-21 07:35] LABS: ANION GAP 6 MEQ/L (2-14); CHLORIDE 88 MEQ/L (99-109); GFR ESTIMATE (CALCULATED) > 59 mL/min/; GLUCOSE 94 mg/dL (70-99); MAGNESIUM 1.9 mg/dl (1.3-2.7); POTASSIUM 5.3 MEQ/L (3.7-5.4); SAMPLE HEMOLYSIS CHECK 0; SAMPLE ICTERIC CHECK 0; SAMPLE LIPEMIA CHECK 0; SODIUM 129 MEQ/L (136-147); UREA NITROGEN (BUN) 19 mg/dL (9-23)
[2017-01-21 11:32] VITALS: BP 99/51
[2017-01-21 15:06] LABS: ANION GAP 5 MEQ/L (2-14); CHLORIDE 93 MEQ/L (99-109); GFR ESTIMATE (CALCULATED) > 59 mL/min/; GLUCOSE 123 mg/dL (70-99); SAMPLE HEMOLYSIS CHECK 0; SAMPLE ICTERIC CHECK 0; SAMPLE LIPEMIA CHECK 0; SODIUM 132 MEQ/L (136-147); UREA NITROGEN (BUN) 17 mg/dL (9-23)
[2017-01-21 15:07] LABS: POTASSIUM 3.9 MEQ/L (3.7-5.4)
[2017-01-21 15:21] VITALS: BP 100/57
[2017-01-21 16:24] LABS: POINT-OF-CARE USER ID STWAMT
[2017-01-21 20:22] VITALS: BP 108/55
[2017-01-21 23:13] VITALS: BP 86/55
[2017-01-21 23:21] VITALS: BP 95/56
[2017-01-22 03:58] VITALS: BP 112/60
[2017-01-22 07:38] LABS: EOSINOPHIL (%) 0 % (0-5); HEMATOCRIT 41.1 % (36.0-46.0); IMMATURE GRANULOCYTE (%) 0.4 % (0.0-0.7); INSTRUMENT ABS NEUTROPHIL CT 4.1 K/uL; LYMPHOCYTE COUNT 2.3 K/uL (1.0-2.8); MCH 32.4 PG (29.0-34.0); MCHC 32.6 G/DL (30.0-36.0); MCV 99.3 FL (83-99); MEAN PLAT.VOLUME 9.9 uM^3 (9.5-12.4); MONOCYTE (%) 12.9 % (3-12); MONOCYTE COUNT 0.9 K/uL (0-0.8); NEUTROPHIL (%) 55.5 % (45-76); NEUTROPHIL COUNT 4.1 K/uL (1.8-6.4); PLATELET COUNT 336 K/uL (156-360); RBC DIS.WIDTH-CV 13.3 % (11.8-14.6); RBC DIS.WIDTH-SD 48.5 % (39-53); RED BLOOD COUNT 4.14 M/uL (3.80-5.20); WHITE BLOOD COUNT 7.3 K/uL (4.1-10.2)
[2017-01-22 07:40] VITALS: BP 115/65
[2017-01-22 08:37] LABS: ANION GAP 7 MEQ/L (2-14); CHLORIDE 91 MEQ/L (99-109); GFR ESTIMATE (CALCULATED) > 59 mL/min/; GLUCOSE 71 mg/dL (70-99); MAGNESIUM 1.9 mg/dl (1.3-2.7); POTASSIUM 4.7 MEQ/L (3.7-5.4); SAMPLE HEMOLYSIS CHECK 0; SAMPLE ICTERIC CHECK 0; SAMPLE LIPEMIA CHECK 0; SODIUM 132 MEQ/L (136-147); UREA NITROGEN (BUN) 20 mg/dL (9-23)
[2017-01-22 12:11] LABS: POINT-OF-CARE METER ID UU14188625
[2017-01-22 16:01] VITALS: BP 120/63
[2017-01-22 16:55] LABS: POINT-OF-CARE METER ID UU14188625
[2017-01-22 21:21] LABS: POINT-OF-CARE METER ID UU14188625
[2017-01-22 23:37] VITALS: BP 102/57
[2017-01-23 05:36] LABS: EOSINOPHIL (%) 0 % (0-5); HEMATOCRIT 39.5 % (36.0-46.0); IMMATURE GRANULOCYTE (%) 0.7 % (0.0-0.7); IMMATURE GRANULOCYTE COUNT 0.1 K/uL; LYMPHOCYTE COUNT 1.7 K/uL (1.0-2.8); MCH 32.9 PG (29.0-34.0); MCHC 33.2 G/DL (30.0-36.0); MCV 99.2 FL (83-99); MEAN PLAT.VOLUME 9.7 uM^3 (9.5-12.4); MONOCYTE (%) 12.3 % (3-12); MONOCYTE COUNT 0.9 K/uL (0-0.8); NEUTROPHIL (%) 64.7 % (45-76); PLATELET COUNT 350 K/uL (156-360); RBC DIS.WIDTH-CV 13.3 % (11.8-14.6); RBC DIS.WIDTH-SD 48.6 % (39-53); RED BLOOD COUNT 3.98 M/uL (3.80-5.20); WHITE BLOOD COUNT 7.7 K/uL (4.1-10.2)
[2017-01-23 06:26] LABS: ANION GAP 5 MEQ/L (2-14); CHLORIDE 94 MEQ/L (99-109); GFR ESTIMATE (CALCULATED) > 59 mL/min/; GLUCOSE 83 mg/dL (70-99); MAGNESIUM 1.9 mg/dl (1.3-2.7); POTASSIUM 5.5 MEQ/L (3.7-5.4); SAMPLE HEMOLYSIS CHECK 0; SAMPLE ICTERIC CHECK 0; SAMPLE LIPEMIA CHECK 0; SODIUM 133 MEQ/L (136-147); UREA NITROGEN (BUN) 24 mg/dL (9-23)
[2017-01-23 07:58] VITALS: BP 113/59
[2017-01-23 11:45] LABS: POINT-OF-CARE METER ID UU14174225
[2017-01-23 14:06] LABS: ANION GAP 8 MEQ/L (2-14); CHLORIDE 92 MEQ/L (99-109); GFR ESTIMATE (CALCULATED) > 59 mL/min/; GLUCOSE 124 mg/dL (70-99); SAMPLE HEMOLYSIS CHECK 0; SAMPLE ICTERIC CHECK 0; SAMPLE LIPEMIA CHECK 0; SODIUM 133 MEQ/L (136-147); UREA NITROGEN (BUN) 21 mg/dL (9-23)
[2017-01-23 16:01] VITALS: BP 110/60
[2017-01-23 23:42] VITALS: BP 105/58
[2017-01-24 05:56] LABS: EOSINOPHIL (%) 0 % (0-5); HEMATOCRIT 41.8 % (36.0-46.0); IMMATURE GRANULOCYTE (%) 0.5 % (0.0-0.7); INSTRUMENT ABS NEUTROPHIL CT 4.3 K/uL; LYMPHOCYTE COUNT 1.9 K/uL (1.0-2.8); MCH 32.2 PG (29.0-34.0); MCHC 32.3 G/DL (30.0-36.0); MCV 99.8 FL (83-99); MEAN PLAT.VOLUME 9.7 uM^3 (9.5-12.4); MONOCYTE (%) 14.1 % (3-12); NEUTROPHIL (%) 59.3 % (45-76); NEUTROPHIL COUNT 4.3 K/uL (1.8-6.4); PLATELET COUNT 370 K/uL (156-360); RBC DIS.WIDTH-CV 13.5 % (11.8-14.6); RBC DIS.WIDTH-SD 49.6 % (39-53); RED BLOOD COUNT 4.19 M/uL (3.80-5.20); WHITE BLOOD COUNT 7.3 K/uL (4.1-10.2)
[2017-01-24 07:14] LABS: ANION GAP 6 MEQ/L (2-14); CHLORIDE 96 MEQ/L (99-109); GFR ESTIMATE (CALCULATED) > 59 mL/min/; MAGNESIUM 2.1 mg/dl (1.3-2.7); SAMPLE HEMOLYSIS CHECK 0; SAMPLE ICTERIC CHECK 0; SAMPLE LIPEMIA CHECK 0; SODIUM 137 MEQ/L (136-147); UREA NITROGEN (BUN) 26 mg/dL (9-23)
[2017-01-24 07:15] LABS: GLUCOSE 79 mg/dL (70-99); POTASSIUM 5.7 MEQ/L (3.7-5.4)
[2017-01-24 07:57] VITALS: BP 108/56
[2017-01-24 13:16] LABS: ANION GAP 5 MEQ/L (2-14); CHLORIDE 94 MEQ/L (99-109); POTASSIUM 4.6 MEQ/L (3.7-5.4); SAMPLE HEMOLYSIS CHECK 0; SAMPLE ICTERIC CHECK 0; SAMPLE LIPEMIA CHECK 0; SODIUM 131 MEQ/L (136-147)
[2017-01-24 13:22] LABS: GFR ESTIMATE (CALCULATED) > 59 mL/min/; GLUCOSE 94 mg/dL (70-99); UREA NITROGEN (BUN) 25 mg/dL (9-23)
[2017-01-24 16:04] VITALS: BP 115/62
[2017-01-24 16:57] LABS: POINT-OF-CARE METER ID UU14188625
[2017-01-24 23:32] VITALS: BP 95/57
[2017-01-25 07:04] LABS: EOSINOPHIL (%) 0 % (0-5); HEMATOCRIT 42.4 % (36.0-46.0); IMMATURE GRANULOCYTE (%) 0.7 % (0.0-0.7); INSTRUMENT ABS NEUTROPHIL CT 3.4 K/uL; LYMPHOCYTE COUNT 1.7 K/uL (1.0-2.8); MCH 32.5 PG (29.0-34.0); MCHC 33.3 G/DL (30.0-36.0); MCV 97.7 FL (83-99); MEAN PLAT.VOLUME 9.6 uM^3 (9.5-12.4); MONOCYTE (%) 14.3 % (3-12); MONOCYTE COUNT 0.9 K/uL (0-0.8); NEUTROPHIL COUNT 3.4 K/uL (1.8-6.4); PLATELET COUNT 376 K/uL (156-360); RBC DIS.WIDTH-CV 13.5 % (11.8-14.6); RBC DIS.WIDTH-SD 49.3 % (39-53); RED BLOOD COUNT 4.34 M/uL (3.80-5.20); WHITE BLOOD COUNT 5.9 K/uL (4.1-10.2)
[2017-01-25 07:45] VITALS: BP 117/73
[2017-01-25 08:03] LABS: ANION GAP 8 MEQ/L (2-14); CHLORIDE 96 MEQ/L (99-109); GFR ESTIMATE (CALCULATED) > 59 mL/min/; GLUCOSE 78 mg/dL (70-99); MAGNESIUM 2.2 mg/dl (1.3-2.7); POTASSIUM 4.8 MEQ/L (3.7-5.4); SAMPLE HEMOLYSIS CHECK 0; SAMPLE ICTERIC CHECK 0; SAMPLE LIPEMIA CHECK 0; SODIUM 136 MEQ/L (136-147); UREA NITROGEN (BUN) 24 mg/dL (9-23)
[2017-01-25 11:51] LABS: POINT-OF-CARE METER ID UU14174225
[2017-01-25 16:05] VITALS: BP 112/68
[2017-01-25 17:10] LABS: POINT-OF-CARE METER ID UU14174225
[2017-01-25 23:48] VITALS: BP 110/65
[2017-01-26 06:47] LABS: EOSINOPHIL (%) 0 % (0-5); HEMATOCRIT 40.6 % (36.0-46.0); IMMATURE GRANULOCYTE (%) 0.5 % (0.0-0.7); INSTRUMENT ABS NEUTROPHIL CT 3.7 K/uL; LYMPHOCYTE COUNT 1.7 K/uL (1.0-2.8); MCH 32.9 PG (29.0-34.0); MCHC 33.3 G/DL (30.0-36.0); MEAN PLAT.VOLUME 9.7 uM^3 (9.5-12.4); MONOCYTE (%) 12.6 % (3-12); MONOCYTE COUNT 0.8 K/uL (0-0.8); NEUTROPHIL (%) 59.2 % (45-76); NEUTROPHIL COUNT 3.7 K/uL (1.8-6.4); PLATELET COUNT 358 K/uL (156-360); RBC DIS.WIDTH-CV 13.6 % (11.8-14.6); RBC DIS.WIDTH-SD 49.9 % (39-53); WHITE BLOOD COUNT 6.3 K/uL (4.1-10.2)
[2017-01-26 07:08] LABS: ANION GAP 7 MEQ/L (2-14); CHLORIDE 97 MEQ/L (99-109); GFR ESTIMATE (CALCULATED) > 59 mL/min/; GLUCOSE 86 mg/dL (70-99); MAGNESIUM 2.1 mg/dl (1.3-2.7); POTASSIUM 4.7 MEQ/L (3.7-5.4); SAMPLE HEMOLYSIS CHECK 0; SAMPLE ICTERIC CHECK 0; SAMPLE LIPEMIA CHECK 0; SODIUM 135 MEQ/L (136-147); UREA NITROGEN (BUN) 23 mg/dL (9-23)
[2017-01-26 07:38] LABS: POINT-OF-CARE METER ID UU14174225
[2017-01-26 08:01] VITALS: BP 103/66
[2017-01-26 12:17] LABS: POINT-OF-CARE METER ID UU14174225
[2017-01-26 15:40] VITALS: BP 117/66
[2017-01-26 21:37] LABS: POINT-OF-CARE METER ID UU14188625
[2017-01-27 00:40] VITALS: BP 113/60
[2017-01-27 05:57] LABS: EOSINOPHIL (%) 0 % (0-5); HEMATOCRIT 39.7 % (36.0-46.0); IMMATURE GRANULOCYTE (%) 0.3 % (0.0-0.7); INSTRUMENT ABS NEUTROPHIL CT 3.7 K/uL; LYMPHOCYTE COUNT 1.5 K/uL (1.0-2.8); MCH 33.3 PG (29.0-34.0); MCHC 33.8 G/DL (30.0-36.0); MCV 98.5 FL (83-99); MEAN PLAT.VOLUME 9.9 uM^3 (9.5-12.4); MONOCYTE (%) 12.3 % (3-12); MONOCYTE COUNT 0.7 K/uL (0-0.8); NEUTROPHIL (%) 62.4 % (45-76); NEUTROPHIL COUNT 3.7 K/uL (1.8-6.4); PLATELET COUNT 325 K/uL (156-360); RBC DIS.WIDTH-CV 13.6 % (11.8-14.6); RBC DIS.WIDTH-SD 49.7 % (39-53); RED BLOOD COUNT 4.03 M/uL (3.80-5.20); WHITE BLOOD COUNT 5.9 K/uL (4.1-10.2)
[2017-01-27 06:47] LABS: ANION GAP 7 MEQ/L (2-14); CHLORIDE 98 MEQ/L (99-109); GFR ESTIMATE (CALCULATED) > 59 mL/min/; GLUCOSE 84 mg/dL (70-99); POTASSIUM 4.9 MEQ/L (3.7-5.4); SAMPLE HEMOLYSIS CHECK 0; SAMPLE ICTERIC CHECK 0; SAMPLE LIPEMIA CHECK 0; SODIUM 136 MEQ/L (136-147); UREA NITROGEN (BUN) 25 mg/dL (9-23)
[2017-01-27 08:54] VITALS: BP 137/66
[2017-01-27 12:57] LABS: POINT-OF-CARE METER ID UU14188625
[2017-01-27] MEDS ORDERED: SPIRIVA RESPIMAT4 GM IH (13:13)
[2017-01-27] MEDS ORDERED: PREDNISONE10 MG PO (13:13)
[2017-01-27] MEDS ORDERED: ADVAIR HFA120 INHALA IH (13:13)
[2017-01-27] MEDS ORDERED: VENTOLIN HFA18 GM IH (15:00)
[2017-01-27 15:29] VITALS: BP 177/85
== END 2017-01-27 17:15 | disposition home health service (06) | DRG 208 ==
LOC: EME → EDBD 13:47 → EME 13:47 → 5SOUTH 20:56 → EDOF 20:56 → 4WEST 20:56 → 5SOUTH 22:26 → 4WEST 01-11 09:39 → 5SOUTH 01-15 18:20 → 4WEST 01-15 18:27 → 5SOUTH 01-15 20:27
PROVIDERS: Emergency Medicine; Hospitalist; Internal Medicine; Internal Medicine Nephrology; Nurse Practitioner Adult Health; Physician Assistant Medical; Psychiatry & Neurology Neurology
DX: J44.0 Chronic obstructive pulmonary disease with (acute) lower respiratory infection (principal); J44.1 Chronic obstructive pulmonary disease with (acute) exacerbation; J20.8 Acute bronchitis due to other specified organisms; B96.3 Hemophilus influenzae [H. influenzae] as the cause of diseases classified elsewhere; J45.901 Unspecified asthma with (acute) exacerbation; F17.210 Nicotine dependence, cigarettes, uncomplicated; R64 Cachexia; E46 Unspecified protein-calorie malnutrition; Z68.1 Body mass index [BMI] 19.9 or less, adult; E87.1 Hypo-osmolality and hyponatremia; I10 Essential (primary) hypertension; F41.9 Anxiety disorder, unspecified; E87.2 Acidosis; J96.02 Acute respiratory failure with hypercapnia; E87.6 Hypokalemia; F10.239 Alcohol dependence with withdrawal, unspecified; G93.41 Metabolic encephalopathy; J96.01 Acute respiratory failure with hypoxia; E87.5 Hyperkalemia; E11.65 Type 2 diabetes mellitus with hyperglycemia
CPT/HCPCS: 36600; 71010; 71020; 71275; 80048; 80048 91; 80053; 82330; 82550; 82803; 82948; 83735; 84100; 84484; 85025; 85027; 85379; 85610; 85730; 87070; 87077; 87086; 87181; 87185; 87205; 87449; 87493; 87641; 92526 GN; 92610 GN; 93005; 94002; 94003; 94640; 94640 76; 94644; 94660; 94760; 94799; 97530 GO; 97530 GP; 99202; 99281; 99285; J0456; J0696; J1100; J1644; J1815; J1940; J2060; J2543; J2704; J2920; J2930; J3010; J3411; J3475; J3480; J7030; J7040; J7050; J7120; J7512; S0028

== ENCOUNTER 2017-07-17 18:50 | Emergency (ER) | payer OTHER ==
[~2017-07-17] VITALS: Ht 162.6 cm; Wt 37.3 kg
[~2017-07-17 18:50] MED LIST changes: +ADVAIR HFA120 INHALA IH; +PREDNISONE10 MG PO; +SPIRIVA RESPIMAT4 GM IH
[2017-07-17 19:25] LABS: EOSINOPHIL (%) 0 % (0-5); HEMATOCRIT 49.8 % (36.0-46.0); IMMATURE GRANULOCYTE (%) 0.2 % (0.0-0.7); INSTRUMENT ABS NEUTROPHIL CT 3.7 K/uL; MCH 32.9 PG (29.0-34.0); MCHC 34.5 G/DL (30.0-36.0); MCV 95.2 FL (83-99); MEAN PLAT.VOLUME 9.8 uM^3 (9.5-12.4); MONOCYTE (%) 10.5 % (3-12); MONOCYTE COUNT 0.6 K/uL (0-0.8); NEUTROPHIL (%) 69.5 % (45-76); NEUTROPHIL COUNT 3.7 K/uL (1.8-6.4); PLATELET COUNT 194 K/uL (156-360); RBC DIS.WIDTH-CV 13.9 % (11.8-14.6); RED BLOOD COUNT 5.23 M/uL (3.80-5.20); WHITE BLOOD COUNT 5.3 K/uL (4.1-10.2)
[2017-07-17 19:35] LABS: CHLORIDE 102 mEq/L (99-109); POTASSIUM 3.1 mEq/L (3.7-5.4); SODIUM 138 mEq/L (136-147)
[2017-07-17 19:37] LABS: GLUCOSE 113 mg/dL (70-99)
[2017-07-17 19:38] LABS: ANION GAP 8 MEQ/L (2-14)
[2017-07-17 19:39] LABS: TOTAL BILIRUBIN 0.5 mg/dL (0.0-1.0)
[2017-07-17 19:41] LABS: ALKALINE PHOSPHATASE 80 IU/L (3-129); GFR ESTIMATE (CALCULATED) > 59 mL/min/
[2017-07-17 19:42] LABS: UREA NITROGEN (BUN) 7 mg/dL (9-23)
[2017-07-17 19:43] LABS: DIRECT BILIRUBIN 0.2 mg/dL (0.0-0.3)
[2017-07-17 19:44] LABS: LIPASE 13 U/L (1.0-51.0)
[2017-07-17 19:46] LABS: TROP-I INTERPRETATION NEGATIVE; TROPONIN-I < 0.01 ng/mL (0.0-0.30)
[2017-07-17 21:32] LABS: ADD MIUA? NO; BILIRUBIN NEGATIVE; BLOOD NEGATIVE; COLOR YELLOW ((YELLOW)); GLUCOSE (STRIP) NEGATIVE; KETONES NEGATIVE; LEUKOCYTES NEGATIVE; NITRITE NEGATIVE; PROTEIN (STRIP) NEGATIVE; SPECIFIC GRAVITY 1.011 (1.000-1.030); UCUL ADDED? NO; UROBILINOGEN 0.2 MG/DL (0.2-1.0)
[2017-07-17 22:38] VITALS: BP 141/81
== END 2017-07-17 22:38 | disposition home or self-care (01) ==
LOC: EME 18:50
PROVIDERS: Emergency Medicine
DX: J44.1 Chronic obstructive pulmonary disease with (acute) exacerbation (principal); E87.6 Hypokalemia; F41.9 Anxiety disorder, unspecified; F32.9 Major depressive disorder, single episode, unspecified; Z79.82 Long term (current) use of aspirin; F17.200 Nicotine dependence, unspecified, uncomplicated; Z88.1 Allergy status to other antibiotic agents; Z88.8 Allergy status to other drugs, medicaments and biological substances
CPT/HCPCS: 71020; 80048; 80076; 81003; 83690; 83880; 84484; 85025; 94640; 99281; 99285; J2930

== ENCOUNTER 2017-08-13 22:31 | Emergency (ER) | payer OTHER ==
[~2017-08-13] VITALS: Ht 160 cm; Wt 38.0 kg
[2017-08-13 23:24] LABS: HEMATOCRIT 45.8 % (36.0-46.0); MCH 33.3 PG (29.0-34.0); MCHC 34.7 G/DL (30.0-36.0); MCV 95.8 FL (83-99); MEAN PLAT.VOLUME 9.5 uM^3 (9.5-12.4); PLATELET COUNT 206 K/uL (156-360); RBC DIS.WIDTH-CV 13.6 % (11.8-14.6); RBC DIS.WIDTH-SD 48.4 % (39-53); RED BLOOD COUNT 4.78 M/uL (3.80-5.20); WHITE BLOOD COUNT 7.4 K/uL (4.1-10.2)
[2017-08-13 23:39] LABS: CHLORIDE 97 mEq/L (99-109); POTASSIUM 3.6 mEq/L (3.7-5.4); SODIUM 135 mEq/L (136-147)
[2017-08-13 23:41] LABS: GLUCOSE 87 mg/dL (70-99)
[2017-08-13 23:43] LABS: ANION GAP 8 MEQ/L (2-14)
[2017-08-13 23:44] LABS: SERUM ETHYL ALCOHOL 43 mg/dL
[2017-08-13 23:45] LABS: GFR ESTIMATE (CALCULATED) > 59 mL/min/; UREA NITROGEN (BUN) 6 mg/dL (9-23)
[2017-08-14 01:10] LABS: AMPHETAMINE NEGATIVE (500 ng/mL); BARBITURATES NEGATIVE (200 ng/mL); BENZODIAZEPINES NEGATIVE (150 ng/mL); COCAINE NEGATIVE (150 ng/mL); INTERNAL CONTROLS VALID? YES; METHADONE NEGATIVE (200 ng/mL); METHAMPHETAMINE NEGATIVE (500 ng/mL); OPIATES (MORPHINE) NEGATIVE (100 ng/mL); OXYCODONE NEGATIVE (100 ng/mL); PHENCYCLIDINE NEGATIVE (25 ng/mL); PROPOXYPHENE NEGATIVE (300 ng/mL); THC CANNABINOIDS NEGATIVE (50 ng/mL); TRICYCLIC ANTIDEPRESSANTS NEGATIVE (300 ng/mL)
[2017-08-14 02:53] VITALS: BP 148/72
== END 2017-08-14 02:45 | disposition home or self-care (01) ==
LOC: EME → EDBD 22:31 → EME 08-14 02:45
PROVIDERS: Emergency Medicine
DX: F32.9 Major depressive disorder, single episode, unspecified (principal); Z79.82 Long term (current) use of aspirin; F17.200 Nicotine dependence, unspecified, uncomplicated
CPT/HCPCS: 80048; 85027; 90837; 99281; 99285; G0480

== ENCOUNTER 2017-08-16 15:06 | Emergency (ER) | payer OTHER ==
[~2017-08-16] VITALS: Ht 154.9 cm; Wt 38.4 kg
[2017-08-16 15:22] VITALS: BP 100/87
== END 2017-08-16 17:30 | disposition left against medical advice (07) ==
LOC: EME 15:06
DX: F32.9 Major depressive disorder, single episode, unspecified (principal); Z53.21 Procedure and treatment not carried out due to patient leaving prior to being seen by health care provider

== ENCOUNTER 2018-04-07 00:11 | Inpatient (IN) | payer OTHER ==
[~2018-04-07] VITALS: Ht 160 cm; Wt 30.0 kg
[2018-04-07 01:12] LABS: BASOPHIL (%) 0.4 % (0-1); EOSINOPHIL (%) 0.8 % (0-5); EOSINOPHIL COUNT 0.1 K/uL (0-0.3); HEMATOCRIT 42.7 % (36.0-46.0); HEMOGLOBIN 14.8 G/DL (11.9-15.5); IMMATURE GRANULOCYTE (%) 0.6 % (0.0-0.7); LYMPHOCYTE (%) 14.7 % (15-42); LYMPHOCYTE COUNT 1.2 K/uL (1.0-2.8); MCH 32.2 PG (29.0-34.0); MCHC 34.7 G/DL (30.0-36.0); MONOCYTE (%) 7.4 % (3-12); MONOCYTE COUNT 0.6 K/uL (0-0.8); NEUTROPHIL (%) 76.1 % (45-76); NEUTROPHIL COUNT 6.3 K/uL (1.8-6.4); PLATELET COUNT 263 K/uL (156-360); RBC DIS.WIDTH-CV 13.1 % (11.8-14.6); RBC DIS.WIDTH-SD 44.3 % (39-53); RED BLOOD COUNT 4.59 M/uL (3.80-5.20); WHITE BLOOD COUNT 8.3 K/uL (4.1-10.2)
[2018-04-07 01:27] LABS: CHLORIDE 93 mEq/L (99-109); POTASSIUM 2.8 mEq/L (3.7-5.4); SODIUM 137 mEq/L (136-147)
[2018-04-07 01:29] LABS: GLUCOSE 106 mg/dL (70-99)
[2018-04-07 01:33] LABS: CREATININE 0.7 mg/dL (0.6-1.3); GFR ESTIMATE (CALCULATED) > 59 mL/min/; UREA NITROGEN (BUN) 5 mg/dL (9-23)
[2018-04-07 01:40] LABS: TROP-I INTERPRETATION NEGATIVE; TROPONIN-I < 0.01 ng/mL (0.0-0.30)
[2018-04-07 10:45] VITALS: BP 106/59
[2018-04-07 11:02] LABS: POTASSIUM 3.7 mEq/L (3.7-5.4)
[2018-04-07 15:00] VITALS: BP 107/58
[2018-04-07 23:35] VITALS: BP 139/69
[2018-04-08 06:05] LABS: HEMATOCRIT 40.8 % (36.0-46.0); HEMOGLOBIN 13.3 G/DL (11.9-15.5); MCH 31.6 PG (29.0-34.0); MCHC 32.6 G/DL (30.0-36.0); MCV 96.9 FL (83-99); PLATELET COUNT 270 K/uL (156-360); RBC DIS.WIDTH-CV 13.2 % (11.8-14.6); RBC DIS.WIDTH-SD 47.8 % (39-53); RED BLOOD COUNT 4.21 M/uL (3.80-5.20); WHITE BLOOD COUNT 11.2 K/uL (4.1-10.2)
[2018-04-08 06:29] LABS: CHLORIDE 100 MEQ/L (99-109); CREATININE 0.5 MG/DL (0.6-1.3); GFR ESTIMATE (CALCULATED) > 59 mL/min/; GLUCOSE 150 mg/dL (70-99); SODIUM 136 MEQ/L (136-147); UREA NITROGEN (BUN) 10 mg/dL (9-23)
[2018-04-08 06:37] LABS: POTASSIUM 4.5 MEQ/L (3.7-5.4)
[2018-04-08 08:20] VITALS: BP 129/77
[2018-04-08 11:30] VITALS: BP 161/74
[2018-04-08 15:27] VITALS: BP 175/82
[2018-04-09] VITALS (7 sets, daily range): BP systolic 143–164; BP diastolic 67–80
[2018-04-09 06:24] LABS: BASOPHIL (%) 0.1 % (0-1); EOSINOPHIL (%) 0 % (0-5); HEMATOCRIT 39.7 % (36.0-46.0); HEMOGLOBIN 13.6 G/DL (11.9-15.5); IMMATURE GRANULOCYTE (%) 0.7 % (0.0-0.7); LYMPHOCYTE (%) 2.9 % (15-42); LYMPHOCYTE COUNT 0.3 K/uL (1.0-2.8); MCH 32.3 PG (29.0-34.0); MCHC 34.3 G/DL (30.0-36.0); MCV 94.3 FL (83-99); MONOCYTE (%) 3.2 % (3-12); MONOCYTE COUNT 0.3 K/uL (0-0.8); NEUTROPHIL (%) 93.1 % (45-76); NEUTROPHIL COUNT 8.3 K/uL (1.8-6.4); PLATELET COUNT 249 K/uL (156-360); RBC DIS.WIDTH-CV 13.3 % (11.8-14.6); RBC DIS.WIDTH-SD 45.2 % (39-53); RED BLOOD COUNT 4.21 M/uL (3.80-5.20)
[2018-04-09 06:45] LABS: ALBUMIN 3.5 G/DL (3.2-4.8); ALKALINE PHOSPHATASE 77 IU/L (3-129); ALT (GPT) 9 IU/L (3-49); AST (GOT) 13 IU/L (2-34); CHLORIDE 97 MEQ/L (99-109); CREATININE 0.4 MG/DL (0.6-1.3); GFR ESTIMATE (CALCULATED) > 59 mL/min/; GLUCOSE 134 mg/dL (70-99); POTASSIUM 3.9 MEQ/L (3.7-5.4); SODIUM 134 MEQ/L (136-147); TOTAL BILIRUBIN 0.5 MG/DL (0.0-1.0); TOTAL PROTEIN 5.6 G/DL (6.4-8.3); UREA NITROGEN (BUN) 11 mg/dL (9-23)
[2018-04-10 03:05] VITALS: BP 168/57
[2018-04-10 06:48] VITALS: BP 169/81
[2018-04-10 11:25] VITALS: BP 164/88
[2018-04-10 11:45] VITALS: BP 164/88
[2018-04-10 15:00] VITALS: BP 141/82
[2018-04-10 19:35] VITALS: BP 131/72
[2018-04-11] VITALS (8 sets, daily range): BP systolic 128–168; BP diastolic 65–91
[2018-04-11 05:46] LABS: CREATININE 0.4 MG/DL (0.6-1.3); GFR ESTIMATE (CALCULATED) > 59 mL/min/; POTASSIUM 4.2 MEQ/L (3.7-5.4); UREA NITROGEN (BUN) 10 mg/dL (9-23)
[2018-04-11 05:56] LABS: CHLORIDE 84 MEQ/L (99-109); GLUCOSE 68 mg/dL (70-99); SODIUM 122 MEQ/L (136-147)
[2018-04-11 12:59] LABS: CHLORIDE 82 MEQ/L (99-109); CREATININE 0.4 MG/DL (0.6-1.3); GFR ESTIMATE (CALCULATED) > 59 mL/min/; GLUCOSE 85 mg/dL (70-99); POTASSIUM 4.1 MEQ/L (3.7-5.4); SODIUM 120 MEQ/L (136-147); UREA NITROGEN (BUN) 11 mg/dL (9-23)
[2018-04-11 16:27] LABS: CHLORIDE 82 MEQ/L (99-109); CREATININE 0.4 MG/DL (0.6-1.3); GFR ESTIMATE (CALCULATED) > 59 mL/min/; GLUCOSE 149 mg/dL (70-99); POTASSIUM 4.2 MEQ/L (3.7-5.4); UREA NITROGEN (BUN) 12 mg/dL (9-23)
[2018-04-11 16:30] LABS: SODIUM 119 MEQ/L (136-147)
[2018-04-11 18:45] LABS: CHLORIDE 80 MEQ/L (99-109); CREATININE 0.5 MG/DL (0.6-1.3); GFR ESTIMATE (CALCULATED) > 59 mL/min/; GLUCOSE 183 mg/dL (70-99); POTASSIUM 4.2 MEQ/L (3.7-5.4); UREA NITROGEN (BUN) 13 mg/dL (9-23)
[2018-04-11 19:04] LABS: SODIUM 117 MEQ/L (136-147)
[2018-04-11 20:27] LABS: CHLORIDE 82 MEQ/L (99-109); CREATININE 0.4 MG/DL (0.6-1.3); GFR ESTIMATE (CALCULATED) > 59 mL/min/; GLUCOSE 145 mg/dL (70-99); POTASSIUM 4.1 MEQ/L (3.7-5.4); SODIUM 120 MEQ/L (136-147); UREA NITROGEN (BUN) 15 mg/dL (9-23)
[2018-04-11 22:48] LABS: APPEARANCE CLEAR ((CLEAR)); BILIRUBIN NEGATIVE; BLOOD NEGATIVE; COLOR YELLOW ((YELLOW)); GLUCOSE (STRIP) NEGATIVE; KETONES 5; LEUKOCYTES NEGATIVE; NITRITE NEGATIVE; PROTEIN (STRIP) NEGATIVE; SPECIFIC GRAVITY 1.013 (1.000-1.030); UCUL ADDED? NO; UROBILINOGEN 0.2 MG/DL (0.2-1.0)
[2018-04-12 00:43] LABS: CHLORIDE 88 mEq/L (99-109); POTASSIUM 4.3 mEq/L (3.7-5.4); SODIUM 124 mEq/L (136-147)
[2018-04-12 00:45] LABS: GLUCOSE 121 mg/dL (70-99)
[2018-04-12 00:49] LABS: CREATININE 0.6 mg/dL (0.6-1.3); GFR ESTIMATE (CALCULATED) > 59 mL/min/
[2018-04-12 00:50] LABS: UREA NITROGEN (BUN) 16 mg/dL (9-23)
[2018-04-12 04:37] VITALS: BP 120/64
[2018-04-12 05:33] LABS: BASOPHIL (%) 0 % (0-1); EOSINOPHIL (%) 0.2 % (0-5); HEMATOCRIT 42.4 % (36.0-46.0); HEMOGLOBIN 15.1 G/DL (11.9-15.5); IMMATURE GRANULOCYTE (%) 0.8 % (0.0-0.7); LYMPHOCYTE (%) 15.6 % (15-42); LYMPHOCYTE COUNT 0.8 K/uL (1.0-2.8); MCH 31.6 PG (29.0-34.0); MCHC 35.6 G/DL (30.0-36.0); MONOCYTE (%) 15.2 % (3-12); MONOCYTE COUNT 0.8 K/uL (0-0.8); NEUTROPHIL (%) 68.2 % (45-76); NEUTROPHIL COUNT 3.4 K/uL (1.8-6.4); PLATELET COUNT 249 K/uL (156-360); RBC DIS.WIDTH-CV 12.5 % (11.8-14.6); RBC DIS.WIDTH-SD 41.1 % (39-53); RED BLOOD COUNT 4.78 M/uL (3.80-5.20)
[2018-04-12 05:45] LABS: MCV 88.7 FL (83-99)
[2018-04-12 06:32] LABS: CHLORIDE 89 MEQ/L (99-109); CREATININE 0.4 MG/DL (0.6-1.3); GFR ESTIMATE (CALCULATED) > 59 mL/min/; POTASSIUM 3.9 MEQ/L (3.7-5.4); SODIUM 124 MEQ/L (136-147); UREA NITROGEN (BUN) 14 mg/dL (9-23)
[2018-04-12 06:41] LABS: GLUCOSE 82 mg/dL (70-99)
[2018-04-12 07:55] VITALS: BP 127/62
[2018-04-12 11:20] VITALS: BP 134/78
[2018-04-12 15:34] VITALS: BP 99/53
[2018-04-12 18:18] LABS: CHLORIDE 94 mEq/L (99-109); POTASSIUM 4.4 mEq/L (3.7-5.4); SODIUM 130 mEq/L (136-147)
[2018-04-12 18:23] LABS: CREATININE 0.8 mg/dL (0.6-1.3); GFR ESTIMATE (CALCULATED) > 59 mL/min/
[2018-04-12 18:24] LABS: UREA NITROGEN (BUN) 20 mg/dL (9-23)
[2018-04-12 18:29] LABS: GLUCOSE 201 mg/dL (70-99)
[2018-04-12 20:32] VITALS: BP 90/52
[2018-04-13 00:52] VITALS: BP 104/67
[2018-04-13 01:10] LABS: CHLORIDE 95 mEq/L (99-109); POTASSIUM 4.1 mEq/L (3.7-5.4); SODIUM 133 mEq/L (136-147)
[2018-04-13 01:12] LABS: GLUCOSE 140 mg/dL (70-99)
[2018-04-13 01:16] LABS: CREATININE 0.7 mg/dL (0.6-1.3); GFR ESTIMATE (CALCULATED) > 59 mL/min/
[2018-04-13 01:17] LABS: UREA NITROGEN (BUN) 22 mg/dL (9-23)
[2018-04-13 05:09] VITALS: BP 102/56
[2018-04-13 05:32] LABS: BASOPHIL (%) 0 % (0-1); EOSINOPHIL (%) 0.2 % (0-5); HEMATOCRIT 39.6 % (36.0-46.0); HEMOGLOBIN 13.8 G/DL (11.9-15.5); IMMATURE GRANULOCYTE (%) 0.3 % (0.0-0.7); LYMPHOCYTE COUNT 1.2 K/uL (1.0-2.8); MCH 31.9 PG (29.0-34.0); MCHC 34.8 G/DL (30.0-36.0); MCV 91.7 FL (83-99); MONOCYTE (%) 14.9 % (3-12); MONOCYTE COUNT 0.9 K/uL (0-0.8); NEUTROPHIL (%) 64.6 % (45-76); NEUTROPHIL COUNT 3.8 K/uL (1.8-6.4); PLATELET COUNT 243 K/uL (156-360); RBC DIS.WIDTH-SD 43.8 % (39-53); RED BLOOD COUNT 4.32 M/uL (3.80-5.20); WHITE BLOOD COUNT 5.9 K/uL (4.1-10.2)
[2018-04-13 06:15] LABS: CHLORIDE 96 MEQ/L (99-109); CREATININE 0.5 MG/DL (0.6-1.3); GFR ESTIMATE (CALCULATED) > 59 mL/min/; POTASSIUM 4.1 MEQ/L (3.7-5.4); SODIUM 132 MEQ/L (136-147); UREA NITROGEN (BUN) 19 mg/dL (9-23)
[2018-04-13 06:18] LABS: GLUCOSE 85 mg/dL (70-99)
[2018-04-13 07:14] VITALS: BP 104/51
[2018-04-13 11:48] VITALS: BP 93/52
[2018-04-13] MEDS ORDERED: Thiamine,Vitamin B1 PO (12:03)
[2018-04-13] MEDS ORDERED: PREDNISONE20 MG PO (12:03)
[2018-04-13] MEDS ORDERED: FOLIC ACID1 MG PO (12:03)
[2018-04-13 15:16] VITALS: BP 89/52
== END 2018-04-13 16:23 | DRG 190 ==
LOC: EME → EDBD 00:11 → EME 00:11 → 5EAST 07:30 → EDOF 07:30 → 4EAST 07:30 → EDOF 07:30 → ENRESERV 08:01 → 5EAST 10:00 → ENRESERV 04-11 17:38 → 5EAST 04-11 18:03 → ENRESERV 04-11 18:13 → 4EAST 04-11 21:20 → ENRESERV 04-13 10:44 → CANRESERV 04-13 10:58 → ENRESERV 04-13 10:58 → 4EAST 04-13 16:23
PROVIDERS: Emergency Medicine; Hospitalist; Internal Medicine; Internal Medicine Nephrology
DX: J44.1 Chronic obstructive pulmonary disease with (acute) exacerbation (principal); J96.21 Acute and chronic respiratory failure with hypoxia; E22.2 Syndrome of inappropriate secretion of antidiuretic hormone; T43.505A Adverse effect of unspecified antipsychotics and neuroleptics, initial encounter; T40.605A Adverse effect of unspecified narcotics, initial encounter; R64 Cachexia; E87.6 Hypokalemia; Z68.1 Body mass index [BMI] 19.9 or less, adult; S72.001P Fracture of unspecified part of neck of right femur, subsequent encounter for closed fracture with malunion; W19.XXXD Unspecified fall, subsequent encounter; F10.20 Alcohol dependence, uncomplicated; I10 Essential (primary) hypertension; Z91.81 History of falling; M54.9 Dorsalgia, unspecified; M19.90 Unspecified osteoarthritis, unspecified site; F32.9 Major depressive disorder, single episode, unspecified; F41.9 Anxiety disorder, unspecified; F42.9 Obsessive-compulsive disorder, unspecified; F17.210 Nicotine dependence, cigarettes, uncomplicated
CPT/HCPCS: 71046; 71275; 73522; 73718; 80048; 80048 91; 80053; 81003; 82436; 82533 91; 82948; 83735; 83930; 83935; 84132 91; 84133; 84300; 84484; 85025; 85027; 85379; 87493; 93005; 94640; 94644; 94799; 97530 GP; 99281; 99285; J1100; J1650; J1956; J2930; J3411; J7030; J7040; J7070; J7512